=== PATIENT | female | born 1965 | race Caucasian/White ===

== ENCOUNTER 2016-06-01 23:55 | Emergency (ER) | payer BC ==
--- NOTE | ~2016-06-01 | CT2 ---
[facility] Service of [facility] RADIOLOGY TEXT RESULTS PATIENT: RADHA MENDIETA LOCATION: [facility] : 63 UNIT #: [id number] AGE: [address]: John Sanon MD SEX: F ORDER DR: [id number] [facility]. [place], [place] [address] [id number] MR#: [id number] Acc #: [id number] NAME: RADHA MENDIETA : 1965 SEX: F STUDY DATE/TIME: 06/02/2016 1:31 UNIT: [facility] ROOM: STUDY DESCRIPTION: CT Abd and Pelv W Cont Attending Physician: John Sanon M.D. Ordering Physician: John Sanon M.D. Primary Care Physician: Basilia Domingo Aprn MEDICAL IMAGING REPORT This report is preliminary unless electronic signature is present EXAM Abdomen and pelvis CT with contrast, 06/02/2016. INDICATION 51-year-old female with hyperglycemia, abdominal pain, traveling from the flank to the front for 3 days. TECHNIQUE Contrast-enhanced abdomen and pelvis CT was performed. This CT exam was performed with one or more of the following radiation dose reduction techniques: automatic exposure control, adjustment of mA and/or kV according to patient size, and iterative reconstruction. COMPARISON STUDIES No comparisons. FINDINGS CT ABDOMEN: There are calcifications associated with the right hemidiaphragm. These are nonspecific. They could potentially reflect sequela of prior asbestos exposure. Trace left effusion and probable atelectasis left lung base. No pericardial effusion. Aorta demonstrates no aneurysm. Spleen, adrenal glands, and pancreas unremarkable. Gallbladder surgically absent. There is mild fatty infiltration of the liver. There is no hydronephrosis of either kidney. However, there is thickening and enhancement of the urothelium of the ureters bilaterally extending from the level of the renal pelves to the level of the bladder, slightly more prominent on the left than the right. Imaging features are nonspecific but may reflect the presence of ascending urinary tract infection in the appropriate clinical context. Correlate with urinalysis. [facility] Service of [facility] RADIOLOGY TEXT RESULTS PATIENT: RADHA MENDIETA LOCATION: [facility] : [birth year] UNIT #: [id number] AGE: [address]: John Sanon MD SEX: F ORDER DR: No radiopaque stone on either side. Probable reactive small retroperitoneal nodes present. CT PELVIS: Bladder demonstrates some subtle induration of the fat plane surrounding the bladder wall which may also reflect cystitis or sequela of urinary tract infection. Uterus surgically absent. Small follicles are present in both ovaries. There is no drainable fluid collection in the pelvis. Trace amount of probable physiologic free fluid. Bowel demonstrates no inflammatory change or obstruction and the appendix is normal. Inguinal canals unremarkable. No suspicious bone lesion. IMPRESSION 1. Nonspecific bilaterally urothelial enhancement of the ureters suggestive of sequela of ascending urinary tract infection. Suggestion of mild superimposed cystitis, as well. Correlate with urinalysis. No hydronephrosis of either kidney. 2. Appendix normal. 3. Mild fatty infiltration of the liver. 4. Trace left effusion and left basilar atelectasis. 5. Surgical absence of the gallbladder and uterus. Dictated by... Mike Keller M.D. THIS IS AN ELECTRONICALLY VERIFIED REPORT Mike Keller M.D. at 06/02/2016 10:09 PM Jackelin TD: 06/02/2016 14:10 JOB #: [id number] MEDICAL IMAGING REPORT Page 1 of 1 COPY
[2016-06-01 23:56] LABS: BASOPHIL# 0.1 X10e3 (0-0.3); BASOPHIL% 0.9 % (0-2.5); EOSINOPHIL# 0.1 X10e3 (0-0.7); EOSINOPHIL% 1.3 % (0.0-7.0); HEMATOCRIT 41.2 % (35.0-45.0); HEMOGLOBIN 13.3 gm/dL (12.0-16.0); LYMPHOCYTE% 28.8 % (17.0-45.0); MEAN CELL VOLUME 83.2 FL (83-96); MEAN CORPUSCULAR HEMOGLOBIN 26.9 PG (28-34); MEAN CORPUSCULAR HGB CONC 32.3 g/dL (30-36); MEAN PLATELET VOLUME 7.4 FL (6.5-11.5); MONOCYTE# 0.8 X10e3 (0-1.0); MONOCYTE% 8.2 % (3.0-12.0); NEUTROPHIL# 6.3 X10e3 (1.5-7.1); NEUTROPHIL% 60.8 % (40-75); PLATELET COUNT 239 X10e3 (140-420); RED BLOOD COUNT 4.95 X10e (3.90-5.30); RED CELL DISTRIBUTION WIDTH 12.9 % (11.0-15.5); WHITE BLOOD COUNT 10.3 X10e3 (4.0-10.5)
[2016-06-02 00:02] LABS: DIFF IND NO
[2016-06-02 00:29] LABS: ALBUMIN SERUM 3.3 g/dL (3.5-5.0); BETA HYDROXYBUTYRATE 0.24 MMOL/L (0.02-0.27); BILIRUBIN, DIRECT 0.1 mg/dL (0.0-0.2); BILIRUBIN,INDIRECT 0.3 mg/dL (0.0-0.9); BILIRUBIN,TOTAL 0.4 mg/dL (0.2-2.0); BUN/CREATININE RATIO 17.14; CALCIUM SERUM 8.7 mg/dL (8.4-10.2); CREATININE SERUM 0.7 mg/dL (0.6-1.4); GLOM FILT RATE Estimated 99.6 mL/min (>60); POTASSIUM 3.8 mmol/L (3.5-5.1); PROTEIN TOTAL SERUM 6.6 g/dL (6.0-8.3)
[2016-06-02 00:33] LABS: URINE SOURCE CLEAN CATCH
[2016-06-02 00:36] LABS: URINE APPEARANCE TURBID; URINE BILIRUBIN NEG (NEG); URINE BLOOD 2+ (NEG); URINE COLOR YELLOW; URINE GLUCOSE >1000 MG/DL (NEG); URINE KETONE NEG (NEG); URINE LEUKOCYTE ESTERASE 2+ (NEG); URINE NITRATE NEG (NEG); URINE PH 5.5 (5-8); URINE PROTEIN 1+ (NEG); URINE SPECIFIC GRAVITY 1.025 (1.003-1.035); URINE UROBILINOGEN 0.2 MG/DL (NEG)
[2016-06-02 00:39] LABS: CULTURE INDICATED? YES; URINE BACTERIA AUWI 2+ (NEGATIVE); URINE SQUAMOUS EPITHELIAL CELL MANY /[HPF]; UWBCS1 AUWI INNUM (0-5)
[2016-07-05] MEDS ORDERED: LANTUS100 U/ML SUBQ (10:09)
[2016-07-05] MEDS ORDERED: NOVOLOG100 U/ML SUBQ (10:10)
[2016-07-05] MEDS ORDERED: LIPITOR20 MG PO (10:10)
[2016-07-05] MEDS ORDERED: METFORMIN HCL500 M1 PO (10:10)
[2016-07-05] MEDS ORDERED: ASPIRIN81 M2 PO (10:11)
[2016-07-05] MEDS ORDERED: CHANTIX PO (10:11)
[2016-07-06] MEDS ORDERED: NEURONTIN300 MG PO (06:29)
== END 2016-06-02 02:50 | disposition home or self-care (01) ==
LOC: CED 23:55
PROVIDERS: Emergency Medicine
DX: N39.0 Urinary tract infection, site not specified (principal); E11.65 Type 2 diabetes mellitus with hyperglycemia
CPT/HCPCS: 36415; 74177; 80048; 80076; 81003; 82010; 82947; 85025; 87086; 87088; 87186; 96361; 96365; 96372; 96375; 99284; J0696; Q9967

== ENCOUNTER → 2016-07-06 | Day surgery (SDC) | payer BC ==
[~2016-07-06] MED LIST: ASPIRIN81 M2 PO; CHANTIX PO; LANTUS100 U/ML SUBQ; LIPITOR20 MG PO; METFORMIN HCL500 M1 PO; NEURONTIN300 MG PO; NOVOLOG100 U/ML SUBQ
--- NOTE | ~2016-07-06 | OR ---
Unit #: [id number] #: [id number] Patient: RADHA MENDIETA [id number] [address] [place], [place] [address] [id number] MR#: [id number] NAME: RADHA MENDIETA ROOM: Date of Procedure: 07/06/2016 Admission Date: 07/06/2016 Surgeon: Rito Moody M.D. : 1965 Attending Physician: Rito Moody M.D. Referring Physician: Rito Moody M.D. Primary Care Physician: Basilia Domingo Aprn OPERATIVE REPORT PREOPERATIVE DIAGNOSIS Screening colonoscopy. POSTOPERATIVE DIAGNOSIS Screening colonoscopy. PROCEDURE PERFORMED Colonoscopy to cecum ANESTHESIA Monitored anesthesia care. FINDINGS The patient was found to have a normal colon to the cecum. SPECIMENS None. COMPLICATIONS None apparent. CONDITION The patient tolerated the procedure well. INDICATIONS FOR PROCEDURE The patient is a 51-year-old white female, who presents at this time for screening colonoscopy. DESCRIPTION OF PROCEDURE After obtaining informed consent, the patient was brought to the endoscopy suite. After adequate monitored anesthesia care, had the colonoscope placed through the anus and slowly advanced to the level of the cecum without difficulty with the lumen always in view. The cecum was normal as was the ileocecal valve. The ascending colon was normal as was the hepatic flexure, transverse colon, splenic flexure, descending colon, sigmoid colon, and rectum. No diverticula were seen. No inflammatory changes or masses were seen. The sigmoid colon was normal as was the rectosigmoid and rectum. We were unable to retroflex in the rectum to the anorectal junction. On pulling back through the anal canal, there were no obvious abnormalities. On digital examination, there was good sphincter tone and no masses palpable. The patient went from the endoscopy suite to Unit #: [id number] #: [id number] Patient: RADHA MENDIETA recovery area in stable condition. RECOMMENDATIONS High-fiber diet, lots of liquids, tucks or wipes p.r.n. Follow up in our office as needed. Dictated by... Ector Mustafa/helene TD: 07/06/2016 22:34 JOB #: [id number] CC: [facility] OPERATIVE REPORT Page 1 of 1 X Rito Moody MD PROCEDURE OPERATIVE NOTE
== END | disposition home or self-care (01) ==
LOC: COPS 05:47
DX: Z12.11 Encounter for screening for malignant neoplasm of colon (principal); E11.9 Type 2 diabetes mellitus without complications; K21.9 Gastro-esophageal reflux disease without esophagitis; F17.210 Nicotine dependence, cigarettes, uncomplicated; Z79.4 Long term (current) use of insulin; Z79.82 Long term (current) use of aspirin; Z79.899 Other long term (current) drug therapy; Z90.49 Acquired absence of other specified parts of digestive tract; Z90.710 Acquired absence of both cervix and uterus; Z98.51 Tubal ligation status
CPT/HCPCS: 82947; J2250

== ENCOUNTER 2016-07-28 15:42 | Emergency (ER) | payer OTHER | END 2016-07-28 18:31 | disposition home or self-care (01) | LOC: CED 15:42 → CFTX 15:42 | DX: S13.4XXA Sprain of ligaments of cervical spine, initial encounter (principal); S23.3XXA Sprain of ligaments of thoracic spine, initial encounter; S33.5XXA Sprain of ligaments of lumbar spine, initial encounter; E11.9 Type 2 diabetes mellitus without complications; F17.210 Nicotine dependence, cigarettes, uncomplicated; Z79.899 Other long term (current) drug therapy; Z79.82 Long term (current) use of aspirin; V43.62XA Car passenger injured in collision with other type car in traffic accident, initial encounter | CPT/HCPCS: 99283 ==